=== PATIENT | female | born 1990 | race Caucasian/White ===

== ENCOUNTER 2019-12-14 04:45 | Inpatient (IN) | payer OTHER, SELFPAY ==
[2019-12-14] VITALS (85 sets, daily range): BP systolic 100–138; BP diastolic 52–99; PULSE 70–127; RESP 16–18; TEMP 36.3–36.7; O2SAT 95–100; BMI 45.9
--- NOTE | 2019-12-14 04:45 | LDADM ---
This patient, Akin Boyd, was admitted to Labor/Delivery/Recovery 106 on 12/14/19 at 04:45. Plans for labor, pain management and were discussed with patient. Patient/family oriented to hospital policies and general routines including ID bracelet, bed and alarms, visiting hours, pain management, procedures, bathroom and other care routines, personal items, smoking policy, room service/diet and guest tray routines, security routines, and visiting hours. Patient/Family are encouraged to report perceived risks to care and to ask questions if they do not understand what they are told or what they should do. See OBIX for further documentation.
[2019-12-14 05:27] LABS: Basophils Absolute Auto 0.1 K/mm3 (0.0-0.1); Basophils Percent Auto 0.5 % (0.2-1.2); Eosinophils Absolute Auto 0.1 K/mm3 (0-0.3); Eosinophils Percent Auto 1.4 % (0-4.4); Hematocrit 41.7 % (37.0-47.0); Hemoglobin 13.9 g/dL (12.0-15.0); Immature Granulocyte Absolute 0.03 K/mm3 (0.00-0.031); Immature Granulocyte Percent A 0.3 % (0-0.5); Lymphocytes Absolute Auto 2.35 K/mm3 (0.9-3.2); Lymphocytes Percent Auto 25.7 % (18.3-44.2); Mean Corpuscular HGB Conc 33.3 g/dl (32-36); Mean Corpuscular Hemoglobin 29.1 pg (26-34); Mean Corpuscular Volume 87.2 fl (80-100); Mean Platelet Volume 11.3 fl (7.4-10.4); Monocytes Absolute Auto 0.7 K/mm3 (0.1-0.6); Monocytes Percent Auto 7.4 % (2.6-8.5); Neutrophils Absolute Auto 5.9 K/mm3 (1.3-6.7); Neutrophils Percent Auto 64.7 % (45.5-73.1); Platelet Count Result 177 k/mm3 (150-375); Red Blood Count 4.78 M/mm3 (4.2-5.4); Red Cell Distribution Width 14.5 % (11.5-14.5); White Blood Count 9.1 K/mm3 (4.5-10.0)
[2019-12-14] MEDS: LACTATED RINGERS 1,000 ML 125 ML IV CONT ×3 (05:40→12:37)
[2019-12-14] MEDS: OXYTOCIN 30 UNITS/NS 500 ML 30 UNITS/500 ML BAG IV CONT ×2 (05:40→14:22)
[2019-12-14 05:41] LABS: Uric Acid 3.3 mg/dL (2.5-7.5)
[2019-12-14 05:43] LABS: Alanine Aminotransferase 14 U/L (4-35); Albumin Level 3.4 g/dL (3.5-5.1); Alkaline Phosphatase 144 U/L (38-126); Anion Gap 7 mmol/L (8-16); Aspartate Amino Transferase 18 U/L (14-36); Bilirubin,Total 0.7 mg/dL (0.2-1.3); Blood Urea Nitrogen 9 mg/dL (7-17); Calcium 8.8 mg/dL (8.4-10.2); Carbon Dioxide 19 mmol/L (22-30); Chloride 107 mmol/L (98-107); Estimated CRCL calculation 207 ml/min; Estimated Glomerular Filt Rate > 60; Glucose 99 mg/dL (65-105); Potassium 3.5 mmol/L (3.4-5.0); Sodium 133 mmol/L (137-145)
--- NOTE | 2019-12-14 07:22 | WPDOBADMIT ---
Obstetrics - Admit Note Admission Note: record reviewed. No pertinent additions to the history and/or any subsequent changes in the physical findings that are not consistent with the expected course of the were found. CHTN at 40 weeks gestation, MIL, gbs negative Additions to the history and/or subsequent changes in the physical findings follow. None.
--- NOTE | 2019-12-14 09:30 | WPDANESEPP ---
Anes - Eval Pre Procedure Procedure: labor epidural Date/Time: 12/14/19 09:30 Surgeon: lyla Pre Op Diagnosis: Induction Patient Data Age: 29 Gender: F Height: 1.73 m Weight: 137 kg Last Vital Signs Temp 36.5 C 12/14/19 05:08 Pulse 127 H 12/14/19 09:17 BP 109/59 L 12/14/19 09:17 Allergies Allergy/AdvReac Type Severity Reaction Status Date / Time No Known Allergies Allergy Verified 12/14/19 04:54 Home Medications Medication Instructions Recorded Confirmed Type PNV cmb#95-ferrous fumarate-FA 1 tablet PO DAILY 11/14/19 12/14/19 History [] Laboratory Tests 12/14/19 12/14/19 12/14/19 05:16 05:16 05:16 WBC 9.1 K/mm3 K/mm3 (4.5-10.0) RBC 4.78 M/mm3 M/mm3 (4.2-5.4) Hgb 13.9 g/dL g/dL (12.0-15.0) Hct 41.7 % % (37.0-47.0) MCV 87.2 fl fl (80-100) MCH 29.1 pg pg (26-34) MCHC 33.3 g/dl g/dl (32-36) RDW 14.5 % % (11.5-14.5) Plt Count 177 k/mm3 k/mm3 (150-375) MPV 11.3 fl H fl (7.4-10.4) Immature Gran % (Auto) 0.3 % % (0-0.5) Neut % (Auto) 64.7 % % (45.5-73.1) Lymph % (Auto) 25.7 % % (18.3-44.2) [place] % (Auto) 7.4 % % (2.6-8.5) Eos % (Auto) 1.4 % % (0-4.4) Baso % (Auto) 0.5 % % (0.2-1.2) Lymph # (Auto) 2.35 K/mm3 K/mm3 (0.9-3.2) [place] # (Auto) 0.7 K/mm3 H K/mm3 (0.1-0.6) Eos # (Auto) 0.1 K/mm3 K/mm3 (0-0.3) Baso # (Auto) 0.1 K/mm3 K/mm3 (0.0-0.1) Abs Immat Gran (auto) 0.03 K/mm3 K/mm3 (0.00-0.031) Absolute Neuts (auto) 5.9 K/mm3 K/mm3 (1.3-6.7) Absolute Nucleated RBC 0.0 K/mm3 K/mm3 (0.0-0.012) Nucleated RBC % 0.0 % % (0.0-0.2) Sodium Potassium Chloride Carbon Dioxide Anion Gap BUN Creatinine Estim Creat Clear Calc Estimated GFR Glucose Uric Acid 3.3 mg/dL mg/dL (2.5-7.5) Calcium Total Bilirubin AST ALT Alkaline Phosphatase Total Protein Albumin RPR Pending Blood Type Antibody Screen 12/14/19 12/14/19 05:16 05:16 WBC RBC Hgb Hct MCV MCH MCHC RDW Plt Count MPV Immature Gran % (Auto) Neut % (Auto) Lymph % (Auto) [place] % (Auto) Eos % (Auto) Baso % (Auto) Lymph # (Auto) [place] # (Auto) Eos # (Auto) Baso # (Auto) Abs Immat Gran (auto) Absolute Neuts (auto) Absolute Nucleated RBC Nucleated RBC % Sodium 133 mmol/L L mmol/L (137-145) Potassium 3.5 mmol/L mmol/L (3.4-5.0) Chloride 107 mmol/L mmol/L (98-107) Carbon Dioxide 19 mmol/L L mmol/L (22-30) Anion Gap 7 mmol/L L mmol/L (8-16) BUN 9 mg/dL mg/dL (7-17) Creatinine 0.50 mg/dL L mg/dL (0.7-1.0) Estim Creat Clear Calc 207 ml/min ml/min Estimated GFR > 60 (59 - ) Glucose 99 mg/dL mg/dL (65-105) Uric Acid Calcium 8.8 mg/dL mg/dL (8.4-10.2) Total Bilirubin 0.7 mg/dL mg/dL (0.2-1.3) AST 18 U/L U/L (14-36) ALT 14 U/L U/L (4-35) Alkaline Phosphatase 144 U/L H U/L (38-126) Total Protein 7.0 g/dL g/dL (6.3-8.2) Albumin 3.4 g/dL L g/dL (3.5-5.1) RPR Blood Type O Positive Antibody Screen Negative Patient hx anesthesia problems: none Family hx anesthesia problems: none [facility] Family History Family History (Updated 11/14/19 @ 12:37 by Madonna Ortiz RN) Mother Hypertension Social History Social Hist
[2019-12-14 11:41] LABS: Rapid Plasma Reagin Non-Reactive (NonReactive)
[2019-12-14] MEDS: SODIUM CHLORIDE 0.9% IV 300 ML 600 ML I-UTERINE (13:20)
--- NOTE | 2019-12-14 13:59 | PM.OBPRVD ---
OB - Delivery Note Procedure Delivery date: 12/14/19 Procedure: vaginal delivery events: Induced HTN Intrapartal events: None Induction method: AROM and per pitocin protocol Delivery monitor: external FHT Route of delivery: Laceration description: Perineal - 2nd Degree Delivery repair: vicryl Specimen: Yes Estimated blood loss (mL): 315 Anesthesia type: Epidural Disposition: other () Baby Date of : 12/14/19 Time of : 01:39 Weeks of gestation at delivery: 40 Infant gender: Male Weight (pounds): 8 Weight (ounces): 6 presentation: vertex Placenta delivery description: Spontaneous cord vessel description: 3 Vessels, Nuchal Cord, Loose, Reduced and Clamped/Cut score one minute: 7 score five minutes: 9
[2019-12-14] MEDS: miSOPROStol 200 MCG TABLET 800 MCG RECTAL (15:10)
[2019-12-14] MEDS: BENZOCAINE 20% AER SPR (*SP) 56 GM CAN 1 SPRAY TOPICAL (16:07)
[2019-12-14] MEDS: WITCH HAZEL 40 PADS 1 PAD TOPICAL (16:07)
[2019-12-14] MEDS: IBUPROFEN 600 MG TABLET PO (18:09)
--- NOTE | 2019-12-14 18:40 | PC.NURSE ---
Patient transferred to post room #290 via wheelchair. Support person present. Oriented to unit, room, information board, rooming in, admission packet and security measures. Patient verbalizes understanding.
[2019-12-14] MEDS: ACETAMINOPHEN 325 MG TABLET 650 MG PO (21:06)
[2019-12-15] MEDS: IBUPROFEN 600 MG TABLET PO (02:04)
[2019-12-15 05:13] LABS: Hemoglobin 11.5 g/dL (12.0-15.0)
[2019-12-15] MEDS: MULTIVIT/MIN/PREN/FOL AC/IRON TABLET 1 TAB PO (07:28)
[2019-12-15] MEDS: ACETAMINOPHEN 325 MG TABLET 650 MG PO (07:28)
[2019-12-15 10:52] VITALS: BP 123/83; PULSE 77; RESP 16; TEMP 36.2
--- NOTE | 2019-12-15 11:08 | PM.OBPNVD ---
OB - PN: Subj Subjective Date/time seen: 12/15/19 11:08 OB - PN: Obj Data Labs CBC & Chem 7: 12/15/19 03:57 12/14/19 05:16 Labs: Laboratory Results - last 24 hr 12/14/19 12/15/19 05:16 03:57 Hgb 11.5 L Hct 35.0 L RPR Non-reactive OB - PN A/P Plan day: 1 Plan: routine care and discharge home Time Spent With Patient Time: Total time spent is greater than 50% in coordination of care (as documented) at patient's floor/unit and/or counseling patient: Time with patient: less than 15 minutes Review of Systems Review of Systems: All systems reviewed & are unremarkable except as noted in HPI and below Exam Narrative: Exam Narrative: Fundus firm and vaginal flow controlled. Const: General: comfortable Chest: Breast/axilla inspection: normal inspection of the breasts Resp: Effort & Inspection: normal respiratory effort Cardio: Rate: regular rate Psych: Appearance: grossly normal Affect: normal affect Attitude: cooperative Judgement: Good judgement present (Psych)
[2019-12-17 10:27] VITALS: BP 132/84; PULSE 81; RESP 18; TEMP 36.8; O2SAT 99
--- NOTE | 2019-12-25 07:50 | PM.OBDSVD ---
DS: Admitting Diagnosis Admitting Diagnosis Admitting Diagnosis: Induction OB - DS: Summary OB Procedures : None OB Procedures Intrapartum: Spontaneous Vag Delivery OB Procedures: : None Time Spent with Patient Time attestation: Total time spent providing and/or coordinating discharge services: DS: Data Data Completed and Pending Completed studies during hospitalization: Pending at discharge 12/14/19 14:32 Surgical [PTH] Routine Discharge Plan Discharge Attending physician on discharge: Kathy Abrams Consulting providers: Sanam Alston ; Jyoti Poon Discharging Clinician: Jyoti Poon Patient Disposition: Home, Self-Care Activity: pelvic rest Diet: as tolerated Discharge Instructions: Education: Mom and Baby Guide Given to: Mother Follow-Up: Call your delivering provider's office for an appointment to be seen in: 4 Weeks Mom and baby should come to the [facility] for the follow-up appointment. Appointment Date/Time: December 15, 2019 at 10:00 am What to expect at your follow-up visit: Blood Pressure Check Physical Assessment Call [phone] if you are unable to keep your appointment time. BREAST CARE: * Wear a snug supportive bra. * For engorgement discomfort: Breast Feeding: * Apply warm moist washcloths * Express milk as needed to relieve engorgement * Wear loose clothing * For sore nipples: * Identify correct latch-on * Apply warm moist washcloths before and after nursing * Air dry nipples after nursing * May apply Lansinoh cream to nipples EPISIOTOMY/PERINEAL CARE: * Until bleeding stops, use your fiordaliza bottle after urinating * Change your pad frequently throughout the day * You may take sitz baths several times a day (fill your bathtub with warm water and soak for 20 minutes.) Do NOT bathe in the water * No tub baths until seen by your physician - You may shower ACTIVITY: * Rest as much as possible. * Do not exercise or lift anything heavier than your baby (such as laundry or other children.) * Avoid stairs or driving as much as possible. * Do not put anything into the vagina. No douching, tampons, or sexual activity until seen by physician. NOTIFY PHYSICIAN IF YOU HAVE ANY QUESTIONS OR IF ANY OF THE FOLLOWING SYMPTOMS OCCUR: * If your perineum becomes red, swollen, or more painful than what you have experienced in the hospital. * If your vaginal bleeding becomes foul smelling. * If your vaginal bleeding becomes more heavy than a period or if your bleeding changes from pink to bright red. However, you may pass an occasional walnut-sized clot once or twice for the first week . * If you experience a sharp, shooting pain in your calves. * If you discover a hard, reddened area on your breast or if you experience flu-like symptoms. DIET: * Eat regular, well-balanced meals. * Drink plenty of fluids daily. If , drink to thirst. Stand Alone Forms: General Discharge Information Follow-up/Referrals: Kathy Abrams MD [Physician] - Discharge Medications: Continued PNV cmb#95-ferrous fumarate-FA [] 28 mg iron- 800 mcg Tablet 1 tablet PO DAILY RF: 0 Date of admission: 12/14/19 04:45 Primary Care Provider: PHYSICIAN,MICROELECTRONICS TECHNICIAN Admitting Provider: Kathy Abrams Discharge Date/Time: 12/15/19 14:58 Attending physician on admission: Kathy Abrams
--- NOTE | 2019-12-28 07:41 | PM.OBDSVD ---
DS: Admitting Diagnosis Admitting Diagnosis Admitting Diagnosis: Induction, stable OB - DS: Summary OB Procedures : None OB Procedures Intrapartum: Spontaneous Vag Delivery OB Procedures: : None Time Spent with Patient Time attestation: Total time spent providing and/or coordinating discharge services: DS: Data Data Completed and Pending Completed studies during hospitalization: Pending at discharge 12/14/19 14:32 Surgical [PTH] Routine Discharge Plan Discharge Attending physician on discharge: Kathy Abrams Consulting providers: Sanam Altson ; Jyoti Poon Discharging Clinician: Jyoti Poon Patient Disposition: Home, Self-Care Activity: pelvic rest Diet: as tolerated Discharge Instructions: Education: Mom and Baby Guide Given to: Mother Follow-Up: Call your delivering provider's office for an appointment to be seen in: 4 Weeks Mom and baby should come to the [facility] for the follow-up appointment. Appointment Date/Time: December 15, 2019 at 10:00 am What to expect at your follow-up visit: Blood Pressure Check Physical Assessment Call [phone] if you are unable to keep your appointment time. BREAST CARE: * Wear a snug supportive bra. * For engorgement discomfort: Breast Feeding: * Apply warm moist washcloths * Express milk as needed to relieve engorgement * Wear loose clothing * For sore nipples: * Identify correct latch-on * Apply warm moist washcloths before and after nursing * Air dry nipples after nursing * May apply Lansinoh cream to nipples EPISIOTOMY/PERINEAL CARE: * Until bleeding stops, use your fiordaliza bottle after urinating * Change your pad frequently throughout the day * You may take sitz baths several times a day (fill your bathtub with warm water and soak for 20 minutes.) Do NOT bathe in the water * No tub baths until seen by your physician - You may shower ACTIVITY: * Rest as much as possible. * Do not exercise or lift anything heavier than your baby (such as laundry or other children.) * Avoid stairs or driving as much as possible. * Do not put anything into the vagina. No douching, tampons, or sexual activity until seen by physician. NOTIFY PHYSICIAN IF YOU HAVE ANY QUESTIONS OR IF ANY OF THE FOLLOWING SYMPTOMS OCCUR: * If your perineum becomes red, swollen, or more painful than what you have experienced in the hospital. * If your vaginal bleeding becomes foul smelling. * If your vaginal bleeding becomes more heavy than a period or if your bleeding changes from pink to bright red. However, you may pass an occasional walnut-sized clot once or twice for the first week . * If you experience a sharp, shooting pain in your calves. * If you discover a hard, reddened area on your breast or if you experience flu-like symptoms. DIET: * Eat regular, well-balanced meals. * Drink plenty of fluids daily. If , drink to thirst. Stand Alone Forms: General Discharge Information Follow-up/Referrals: Kathy Abrams MD [Physician] - Discharge Medications: Continued PNV cmb#95-ferrous fumarate-FA [] 28 mg iron- 800 mcg Tablet 1 tablet PO DAILY RF: 0 Date of admission: 12/14/19 04:45 Primary Care Provider: PHYSICIAN,SALESPERSON [place] [employer] Admitting Provider: Kathy Abrams Discharge Date/Time: 12/15/19 14:58 Attending physician on admission: Kathy Abrams
== END 2019-12-15 14:58 | disposition home or self-care (01) | DRG 560 ==
LOC: ANHLDR 04:55 → ANHOB2 20:12
PROVIDERS: Advanced Practice Midwife; Admitting Provider Obstetrics & Gynecology; Visit Provider Obstetrics & Gynecology
DX: O13.4 Gestational [pregnancy-induced] hypertension without significant proteinuria, complicating childbirth (principal); O69.81X0 Labor and delivery complicated by cord around neck, without compression, not applicable or unspecified; O70.1 Second degree perineal laceration during delivery; Z3A.40 40 weeks gestation of pregnancy; Z37.0 Single live birth
CPT/HCPCS: 36415; 80053; 84550; 85014; 85018; 85025; 86592; 86850; 86900; 86901; 88307; A9270; J2590; J2795; J7030; J7120

== ENCOUNTER 2021-06-18 11:52 | Outpatient (CLI) | payer OTHER, SELFPAY ==
--- NOTE | 2021-06-18 12:14 | ECG_ITS ---
Measurements Intervals [place] Rate: 83 P: 24 VT: 165 QRS: -19 QRSD: 87 T: 56 QT: 397 QTc: 467 Interpretive Statements SINUS RHYTHM MODERATE VOLTAGE CRITERIA FOR LVH, CONSIDER NORMAL VARIANT [MEETS CRITERIA IN ONE OF: R(aVL), S(V1), R(V5), R(V5/V6)+S(V1)] NONSPECIFIC T-WAVE ABNORMALITY NO PREVIOUS ECG AVAILABLE FOR COMPARISON Electronically Signed On 06-18-2021 18:45:27 CDT by Rosanna Velez M.D.
== END 2021-06-18 11:53 | disposition home or self-care (01) ==
PROVIDERS: Visit Provider Obstetrics & Gynecology
DX: E66.9 Obesity, unspecified (principal)
CPT/HCPCS: 93005

== ENCOUNTER 2021-08-25 09:25 | Outpatient (RCR) | payer SELFPAY ==
[2021-08-25 09:46] VITALS: BMI 41.8
== END 2021-09-25 11:52 | disposition home or self-care (01) ==
LOC: ANHDMC 09:25
PROVIDERS: PCP Physician Assistant; Visit Provider Physician Assistant
DX: Z68.41 Body mass index [BMI] 40.0-44.9, adult (principal); Z71.3 Dietary counseling and surveillance
CPT/HCPCS: 97802

== ENCOUNTER 2022-01-29 01:07 | Day surgery (SDC) | payer OTHER, SELFPAY ==
[2022-01-27 10:01] VITALS: BMI 41.6
--- NOTE | 2022-01-27 10:05 | PC.NURSE ---
Report to the Outpatient Waiting Room, entrance under the green pavilion located off [facility], at time 1130 on date 01/29/22. Planned Procedure Time: 1330. Time changes happen often and if your time is changed the preop area will call you the afternoon before. - You and your visitor will be asked to self-screen and do not enter if you have any COVID symptoms. - We encourage only one visitor and NO visitors under age 16 are allowed at this time. Your visitor will receive communication by the phone number that is given day of service. - The patient visitor is requested to social distance or may leave the building when not with patient due to restrictions. - A mask is required within the hospital. Patients may have clear liquids (water, carbonated beverages, clear teas, apple juice) until 3 hours prior to surgery with a maximum of 20 ounces. - No food from midnight until time of surgery Take the following medications with a SIP of water the morning of surgery: NONE Medications to discontinue per physician: VITAMINS Date to take last dose: NO MORE UNTIL AFTER SURGERY Please no make-up, nail zambian, hairspray, perfume, deodorant, or body powder the day of surgery. No jewelry (including any body piercings) or valuables the day of surgery, leave them at home. Please take a shower or bath the night before, or the morning of, surgery with an antibacterial soap. Wear comfortable, loose fitting clothing. - Jewelry must be removed prior to entering the operating room. Rings and piercings that are not removed may be cut off. - The hospital will not accept responsibility for valuables. - Please leave all valuables, including medications, at home the day of surgery. If you are going home after surgery, a licensed pizza driver must drive you home. - NO public transportation without another adult. - We recommend that an adult stay with you for 24 hours following discharge. - We also recommend that you do not drive, make important decision, drink alcoholic beverages, or take any drugs that were not prescribed by your health care provider for at least 24 hours after your discharge time. Follow any additional instructions given to you from your surgeon. If you or anyone in your household have experienced Covid symptoms in the past week, please notify your surgeon or the nurse liaison at the phone number below for possible testing. Telephone instructions given to PT - TOMI LINDER and asked if any additional questions and then verbalized understanding. Patient advised to call surgeon office or pre surgery nurse liaison [phone] if any additional questions.
--- NOTE | 2022-01-28 14:38 | WPDANESEPPF ---
Anes - Initial Pre Proc Eval Procedure: Operation Date: 01/29/22 13:30 Proposed Procedures p Suction Dilatation and Curettage - Grecia Reyes MD Date/Time: 01/28/22 14:38 Surgeon: Grecia Reyes MD Pre Op Diagnosis: blighted ovum Patient Data Age: 31 Gender: F Height: 1.72 m Weight: 123.4 kg Allergies Allergy/AdvReac Type Severity Reaction Status Date / Time No Known Allergies Allergy Verified 01/29/22 11:50 Home Medications Medication Instructions Recorded Confirmed Type vit no.95-ferrous 1 tablet PO DAILY 11/14/19 01/29/22 History fumarate 28 mg-folic acid 800 mcg tablet () cholecalciferol (vitamin D3) 125 125 mcg PO DAILY 01/27/22 01/29/22 History mcg (5,000 unit) tablet (Vitamin D3) Patient hx anesthesia problems: none Family hx anesthesia problems: none Results Review: All pre-operative results and documents have been reviewed as part of the pre-operative evaluation. [facility] Past Medical History Medical History (Updated 01/28/22 @ 14:39 by Eirs Cotter MD) Hyperlipidemia Morbid obesity with BMI of 40.0-44.9, adult Family History Family History (Updated 11/14/19 @ 12:37 by Madonna Ortiz RN) Mother Hypertension Social History Social History Smoking status: Never smoker Alcohol intake: never Substance use: never Substance use type: does not use Living arrangements: with family Gender identity (if verbalized by the patient): Female Spiritual care concerns: No Anes - Eval Final PreProcedure Day of Procedure 01/28/22 14:38 Patient weight: morbidly obese Heart: regular rate and rhythm Lungs: clear to auscultation and normal air movement Airway: Mallampati scale class II Neurological: alert and oriented Last oral intake: >/= 8 hours ASA classification: III Emergent: no Anesthetic plan: proceed Anesthesia type and monitoring: general GIVS and LMA Results Review: All pre-operative results and documents have been reviewed as part of the pre-operative evaluation. Informed Consent: The patient's anesthetic plan and its attendant risks and benefits were discussed with the patient/family/POA. Questions were solicited and answers provided to the satisfaction of the patient/family/POA.
[2022-01-29] MEDS: ACETAMINOPHEN 500 MG TABLET 1000 MG PO (12:20)
[2022-01-29] MEDS: LACTATED RINGERS 1,000 ML 30 ML IV CONT (12:26)
[2022-01-29] MEDS: DOXYCYCLINE 100 MG/NS 100 ML 100 MG/100 ML BAG IVPB (12:27)
[2022-01-29 12:31] VITALS: BP 146/74; PULSE 82; RESP 16; TEMP 36.8; O2SAT 100
--- NOTE | 2022-01-29 13:33 | PM.IMHP ---
H&P: HPI History of Present Illness Date/Time: 01/29/22 13:33 Chief Complaint: blighted ovum Narrative: Akin is a with blighted ovum based on US 8 days apart with no progression, no pole, at >9w GA. She has history of HTN and two term SVDs. Review of Systems Review of Systems: All systems reviewed & are unremarkable except as noted in HPI and below PMFSH Past Medical History Medical History (Updated 01/29/22 @ 13:34 by Grecia Reyes MD) Hyperlipidemia Morbid obesity with BMI of 40.0-44.9, adult Family History Family History (Updated 11/14/19 @ 12:37 by Madonna Ortiz RN) Mother Hypertension Social History Social History Smoking status: Never smoker Alcohol intake: never Substance use: never Substance use type: does not use Living arrangements: with family Gender identity (if verbalized by the patient): Female Spiritual care concerns: No Meds Home Medications and Allergies Home Medications Medication Instructions Recorded Confirmed Type vit no.95-ferrous 1 tablet PO DAILY 11/14/19 01/29/22 History fumarate 28 mg-folic acid 800 mcg tablet () cholecalciferol (vitamin D3) 125 125 mcg PO DAILY 01/27/22 01/29/22 History mcg (5,000 unit) tablet (Vitamin D3) Allergies Allergy/AdvReac Type Severity Reaction Status Date / Time No Known Allergies Allergy Verified 01/29/22 11:50 Vital Signs Vital Signs - 24 hr 01/29/22 12:31 Temperature 98.3 F Pulse Rate 82 Respiratory Rate 16 Blood Pressure 146/74 H Pulse Oximetry 100 Oxygen Delivery Room Air Exam Const: General: no acute distress Resp: Effort & Inspection: normal respiratory effort Auscultation: clear to auscultation bilaterally Cardio: Rate: regular rate Rhythm: regular rhythm GI: GI Palp: Yes Soft to palpation Extrem: General: normal to inspection Assessment and Plan Assessment and plan (1) Blighted ovum: Code(s): O02.0 - Blighted ovum and nonhydatidiform mole Status: Acute Plan O pos will proceed with suction D and C for blighted ovum. Discussed RBA< consented. questions answered doxy.
--- NOTE | 2022-01-29 13:35 | WPDHPUPDATE1 ---
History and Physical Update Update Date/Time: 01/29/22 13:35 History and Physical has been reviewed, including an updated exam of the patient. There are NO changes in the patient's condition. Risks, benefits, and alternatives have been discussed and questions answered. Patient agrees to proceed with procedure.
[2022-01-29] MEDS: BUPIVACAINE/EPINEPHRINE 0.25% 50 ML VIAL 10 ML INFILTRATE (13:53)
--- NOTE | 2022-01-29 14:14 | W.PM.PROC2 ---
Procedure Note - Detailed Date of Procedure 01/29/22 Pre-op Diagnosis blighted ovum Post-op Diagnosis Same Procedure Performed suction D and C Surgeon Grecia Reyes MD Anesthesia MAC Indications blighted ovum on two US Findings uterus sounded to 9cm. copious POC. Description of Procedure The patient was taken to the OR and placed in supine position in dorsal lithotomy. She received MAC anesthesia and doxycycline. She was prepped and draped in normal fashion. A speculum was placed and the cervix was grasped with a single tooth tenaculum. A paracervical block was placed with 10cc 0.25% marcaine with epinephrine. The cervix was sequentially dilated to 8 pfeiffer. The suction was tested and then the suction catheter was inserted into the uterine cavity. Several passes were made until no further products of conception were obtained. The tenaculum was removed and hemostasis was obtained with pressure and monsel's solution. The speculum was removed. The patient tolerated the procedure well and was taken to the recovery room in stable condition. Estimated Blood Loss 50 Drains No Packing No Pathology Yes Complications No immediate complications Condition Stable Disposition Same day
[2022-01-29 14:15] VITALS: BP 101/47; PULSE 83; RESP 12; O2SAT 100
[2022-01-29 14:30] VITALS: BP 108/53; PULSE 69; RESP 12; O2SAT 100
[2022-01-29 14:45] VITALS: BP 121/66; PULSE 74; RESP 12; O2SAT 99
[2022-01-29 15:15] VITALS: BP 121/69; PULSE 68; RESP 14
== END 2022-01-29 15:25 | disposition home or self-care (01) ==
PROVIDERS: PCP Physician Assistant; Visit Provider Obstetrics & Gynecology
PROC: (CPT 59820; principal; 2022-01-29 13:30)
DX: O02.0 Blighted ovum and nonhydatidiform mole (principal)
CPT/HCPCS: 59820; 36415; 85461; 86850; 86900; 86901; 88305; A9270; J1100; J1885; J2250; J2704; J3010; J7120

== ENCOUNTER 2023-02-17 18:06 | Observation (INO) | payer OTHER, SELFPAY ==
[2023-02-17 21:07] VITALS: BMI 48.3
--- NOTE | 2023-02-17 21:08 | OBADM ---
This patient, Akin Boyd, admitted to the OB room Labor/Delivery/Recovery 104 for observation. Patient/family oriented to hospital policies and general routines including ID bracelet, bed and alarms, visiting hours, pain management, procedures, bathroom and other care routines, personal items, smoking policy, room service/diet, and visiting hours. Patient/Family are encouraged to report perceived risks to care and to ask questions if they do not understand what they are told or what they should do.
--- NOTE | 2023-02-18 12:39 | PM.OBTRLD ---
OB - Triage/Final Diagnosis Visit Information Date of evaluation: 02/17/23 Reason for evaluation: threatened labor Comments/Additional reasons for admission: I have assessed the risk for this patient, Akin Boyd, and determined that she would benefit from observation care. Evaluation Vital signs: Vital Signs - 24 hr 02/17/23 21:07 Oxygen Delivery Room Air
== END 2023-02-17 21:15 | disposition home health service (06) ==
PROVIDERS: Admitting Provider Obstetrics & Gynecology; Visit Provider Obstetrics & Gynecology
DX: O47.1 False labor at or after 37 completed weeks of gestation (principal); Z3A.38 38 weeks gestation of pregnancy
CPT/HCPCS: G0378; G0379

== ENCOUNTER 2023-02-21 17:49 | Outpatient (CLI) | payer OTHER, SELFPAY ==
[2023-02-21 18:07] VITALS: BP 131/84; PULSE 87; TEMP 36.8
[2023-02-21 18:16] VITALS: BP 133/81; PULSE 85
[2023-02-21 18:31] VITALS: BP 133/76; PULSE 89
[2023-02-21 18:40] LABS: Appearance Urine Cloudy (Clear); Bacteria Urine Rare /hpf; Bilirubin Urine Negative (Negative); Blood Urine Negative (Negative); Color Urine Yellow (Yellow); Glucose Urine UA Negative (Negative); Ketones Urine Negative (Negative); Leukocyte Esterase Ur 1+ LEU/UL (NEGATIVE); Nitrate Urine Negative (Negative); Non Pathogenic Casts 0-2; Protein Urine Negative (Negative); RBC Urine 0-2 /hpf (0-2); Specific Grav Ur 1.012 (1.001-1.035); Squamous Epithelial Cell Urine Few /hpf (Few)
[2023-02-21 18:43] LABS: Basophils Percent Auto 0.2 % (0.2-1.2); Eosinophils Absolute Auto 0.1 K/mm3 (0-0.3); Eosinophils Percent Auto 1.2 % (0-4.4); Hematocrit 35.8 % (37.0-47.0); Hemoglobin 11.3 g/dL (12.0-15.0); Immature Granulocyte Absolute 0.03 K/mm3 (0.00-0.031); Immature Granulocyte Percent A 0.4 % (0-0.5); Lymphocytes Percent Auto 30.5 % (18.3-44.2); Mean Corpuscular HGB Conc 31.6 g/dl (32-36); Mean Corpuscular Hemoglobin 27.7 pg (26-34); Mean Corpuscular Volume 87.7 fl (80-100); Mean Platelet Volume 11.6 fl (7.4-10.4); Monocytes Absolute Auto 0.8 K/mm3 (0.1-0.6); Monocytes Percent Auto 9.3 % (2.6-8.5); Neutrophils Absolute Auto 4.8 K/mm3 (1.3-6.7); Neutrophils Percent Auto 58.4 % (45.5-73.1); Platelet Count Result 185 k/mm3 (150-375); Red Blood Count 4.08 M/mm3 (4.2-5.4); Red Cell Distribution Width 14.5 % (11.5-14.5); White Blood Count 8.2 K/mm3 (4.5-10.0)
[2023-02-21 18:46] VITALS: BP 125/84; PULSE 87
[2023-02-21 18:54] LABS: Alanine Aminotransferase 13 U/L (6-35); Albumin Level 3.3 g/dL (3.5-5.1); Alkaline Phosphatase 133 U/L (38-126); Anion Gap 7 mmol/L (8-16); Aspartate Amino Transferase 19 U/L (14-36); Bilirubin,Total 0.9 mg/dL (0.2-1.3); Blood Urea Nitrogen 5 mg/dL (7-17); Calcium 8.7 mg/dL (8.4-10.2); Carbon Dioxide 21 mmol/L (22-30); Chloride 108 mmol/L (98-107); Estimated Glomerular Filt Rate > 60; Glucose 88 mg/dL (65-110); Potassium 3.4 mmol/L (3.4-5.0); Sodium 136 mmol/L (137-145); Uric Acid 4.3 mg/dL (2.5-7.5)
[2023-02-21 19:09] LABS: Add Urine Microscopic? YES
[2023-02-21 19:21] LABS: Total Protein Urine Random 13 mg/dL
[2023-02-21 21:03] LABS: Creatinine Urine 82.5 mg/dL; Ur Ttl Prot Creatinine Ratio 0.16 mg/mg (0-0.20)
== END 2023-02-21 20:14 | disposition home or self-care (01) ==
LOC: ANHOBOP 17:55 → ANHLDR 17:58
PROVIDERS: Visit Provider Advanced Practice Midwife
DX: O13.9 Gestational [pregnancy-induced] hypertension without significant proteinuria, unspecified trimester (principal); Z3A.00 Weeks of gestation of pregnancy not specified
CPT/HCPCS: 36415; 59025; 80053; 81001; 82570; 84156; 84550; 85025; 87086; 87088; 99199

== ENCOUNTER 2023-02-28 06:28 | Inpatient (IN) | payer OTHER, SELFPAY ==
[2023-02-28] VITALS (110 sets, daily range): BP systolic 116–143; BP diastolic 67–94; PULSE 74–149; RESP 18; TEMP 36.5–37.6; O2SAT 93–100; BMI 47.9
--- NOTE | 2023-02-28 07:08 | LDADM ---
This patient, Akin Boyd, was admitted to Labor/Delivery/Recovery 108 on 02/28/23 at 06:28. Plans for labor, pain management and were discussed with patient. Patient/family oriented to hospital policies and general routines including ID bracelet, bed and alarms, visiting hours, pain management, procedures, bathroom and other care routines, personal items, smoking policy, room service/diet and guest tray routines, security routines, and visiting hours. Patient/Family are encouraged to report perceived risks to care and to ask questions if they do not understand what they are told or what they should do. See OBIX for further documentation.
[2023-02-28 07:20] LABS: Basophils Percent Auto 0.5 % (0.2-1.2); Eosinophils Absolute Auto 0.2 K/mm3 (0-0.3); Eosinophils Percent Auto 1.9 % (0-4.4); Hemoglobin 12.1 g/dL (12.0-15.0); Immature Granulocyte Absolute 0.04 K/mm3 (0.00-0.031); Immature Granulocyte Percent A 0.5 % (0-0.5); Lymphocytes Percent Auto 28.7 % (18.3-44.2); Mean Corpuscular HGB Conc 31.8 g/dl (32-36); Mean Platelet Volume 11.6 fl (7.4-10.4); Monocytes Absolute Auto 0.7 K/mm3 (0.1-0.6); Monocytes Percent Auto 8.5 % (2.6-8.5); Neutrophils Percent Auto 59.9 % (45.5-73.1); Platelet Count Result 187 k/mm3 (150-375); Red Blood Count 4.32 M/mm3 (4.2-5.4); Red Cell Distribution Width 14.3 % (11.5-14.5); White Blood Count 8.4 K/mm3 (4.5-10.0)
--- NOTE | 2023-02-28 07:49 | WPDOBADMIT ---
Obstetrics - Admit Note Admission Note: record reviewed. No pertinent additions to the history and/or any subsequent changes in the physical findings that are not consistent with the expected course of the were found. Additions to the history and/or subsequent changes in the physical findings follow. IOL, hx chronic HTN, obesity, SVE 250/-3 AROM moderate amount of clear, odorless fluid, anticipate vaginal delivery.
--- NOTE | 2023-02-28 08:06 | WPDANESEPP ---
Anes - Eval Pre Procedure Procedure: Labor epidural Date/Time: 02/28/23 08:06 Surgeon: Aliza Preop Diagnosis: Pain during labor Pre Op Diagnosis: Induction of Labor Patient Data Age: 32 Gender: F Height: 1.7 m Weight: 139 kg Last Vital Signs Pulse 108 H 02/28/23 08:01 BP 118/81 02/28/23 08:01 O2 Del Method Room Air 02/28/23 07:05 Allergies Allergy/AdvReac Type Severity Reaction Status Date / Time No Known Allergies Allergy Verified 02/09/23 15:21 Home Medications Medication Instructions Recorded Confirmed Type vit no.95-ferrous 1 tablet PO DAILY 11/14/19 02/09/23 History fumarate 28 mg-folic acid 800 mcg tablet () aspirin 81 mg tablet 81 mg PO DAILY 02/28/23 02/28/23 History Laboratory Tests 02/28/23 06:50 WBC 8.4 K/mm3 (4.5-10.0) RBC 4.32 M/mm3 (4.2-5.4) Hgb 12.1 g/dL (12.0-15.0) Hct 38.0 % (37.0-47.0) MCV 88.0 fl (80-100) MCH 28.0 pg (26-34) MCHC 31.8 L g/dl (32-36) RDW 14.3 % (11.5-14.5) Plt Count 187 k/mm3 (150-375) MPV 11.6 H fl (7.4-10.4) Immature Gran % (Auto) 0.5 % (0-0.5) Neut % (Auto) 59.9 % (45.5-73.1) Lymph % (Auto) 28.7 % (18.3-44.2) [place] % (Auto) 8.5 % (2.6-8.5) Eos % (Auto) 1.9 % (0-4.4) Baso % (Auto) 0.5 % (0.2-1.2) Lymph # (Auto) 2.40 K/mm3 (0.9-3.2) Highland # (Auto) 0.7 H K/mm3 (0.1-0.6) Eos # (Auto) 0.2 K/mm3 (0-0.3) Baso # (Auto) 0.0 K/mm3 (0.0-0.1) Abs Immat Gran (auto) 0.04 H K/mm3 (0.00-0.031) Absolute Neuts (auto) 5.0 K/mm3 (1.3-6.7) Absolute Nucleated RBC 0.0 K/mm3 (0.0-0.012) Nucleated RBC % 0.0 % (0.0-0.2) RPR Pending Patient hx anesthesia problems: none Family hx anesthesia problems: none Results Review: All pre-operative results and documents have been reviewed as part of the pre-operative evaluation. [facility]LY [facility] Past Medical History Medical History Hyperlipidemia Morbid obesity with BMI of 40.0-44.9, adult Family History Family History Mother Hypertension Social History Social History Smoking status: Never smoker Second hand tobacco smoke exposure: No Alcohol intake: never Substance use: never Substance use type: does not use Lack of Transportation: No Lack of Food: Never True Current Housing: I Have Housing Concerned About Future Housing: No Difficulty Paying Gas/Electric Bills: No Difficulty Paying for Meds: No Currently Unemployed: No Education: High School Diploma/GED Difficulty w/ Childcare or Family Care: No Living arrangements: with family Gender identity (if verbalized by the patient): Female Spiritual care concerns: No Exam Day of Procedure 02/28/23 08:06 Patient weight: morbidly obese Heart: regular rate and rhythm Lungs: clear to auscultation Airway: Mallampati scale class II Neurological: alert and oriented
[2023-02-28] MEDS: OXYTOCIN 30 UNITS/NS 500 ML 30 UNITS/500 ML BAG IV CONT (10:32)
[2023-02-28] MEDS: LACTATED RINGERS 1,000 ML 125 ML IV CONT ×2 (10:33→18:34)
[2023-02-28 14:54] LABS: Rapid Plasma Reagin Non-Reactive (NonReactive)
[2023-02-28] MEDS: LIDOCAINE HCL 1% LOCAL INJ 20 ML VIAL (19:52)
--- NOTE | 2023-02-28 20:04 | PM.OBPRVD ---
OB - Vaginal Delivery Note Procedure Delivery date: 02/28/23 Events: Other (chronic HTN) Induction method: AROM and Per Pitocin Protocol Delivery monitor: External FHT and Internal FHT Route of delivery: Episiotomy description: None Laceration Description: Perineal - 1st Degree Delivery repair: vicryl Specimen: Yes Quantitative Blood Loss (ml): 275 Anesthesia type: Local Disposition: Floor Baby Date of : 02/28/23 Time of : 19:46 Weeks of gestation at delivery: 39 Infant gender: Female Weight (pounds): 9 Weight (ounces): 12 presentation: vertex position: Left Occiput Anterior Placenta delivery description: Spontaneous Cord Vessel Description: 3 Vessels and Clamped/Cut score one minute: 8 score five minutes: 9 Narrative: mother and baby skin to skin in stable condition
[2023-02-28] MEDS: OXYTOCIN 30 UNITS/NS 500 ML 30 UNITS/500 ML BAG 125 UNITS IV CONT (20:26)
[2023-02-28] MEDS: IBUPROFEN 600 MG TABLET PO (21:56)
[2023-02-28] MEDS: ACETAMINOPHEN 325 MG TABLET 650 MG PO (21:58)
[2023-02-28] MEDS: LORATADINE 10 MG TABLET PO (21:59)
[2023-02-28] MEDS: BENZOCAINE 20% AER SPR (*SP) 56 GM CAN 1 SPRAY TOPICAL (21:59)
[2023-03-01 04:27] VITALS: BP 124/82; PULSE 96; RESP 18; TEMP 37.4; O2SAT 98
[2023-03-01 05:32] LABS: Hematocrit 35.8 % (37.0-47.0); Hemoglobin 11.2 g/dL (12.0-15.0)
[2023-03-01] MEDS: IBUPROFEN 600 MG TABLET PO ×3 (08:00→22:14)
[2023-03-01] MEDS: DOCUSATE SODIUM 100 MG CAPSULE PO ×2 (08:00→17:30)
[2023-03-01] MEDS: MULTIVIT/MIN/PREN/FOL AC/IRON TABLET 1 TAB PO (08:00)
[2023-03-01 09:06] VITALS: BP 133/89; PULSE 80; RESP 18; TEMP 36.7; O2SAT 99
--- NOTE | 2023-03-01 09:08 | PM.OBPNVD ---
OB - PN: Subj Subjective Date/time seen: 03/01/23 09:08 Interval history: Doing well, no issues overnight Regular diet Emptying bladder Passing flatus Pain well controlled OB - PN: Obj Data Labs 03/01/23 02:54 Labs: Laboratory Results - last 24 hr 02/28/23 03/01/23 06:50 02:54 Hgb 11.2 L Hct 35.8 L RPR Non-reactive Antibody Screen Negative OB - PN A/P Plan day: 1 Plan: routine care Time Spent With Patient Time: Total time spent is greater than 50% in coordination of care (as documented) at patient's floor/unit and/or counseling patient: Review of Systems Review of Systems: All systems reviewed & are unremarkable except as noted in HPI and below Exam Const: General: comfortable, no acute distress, alert and awake Orientation/consciousness: patient oriented x3 Resp: Effort & Inspection: normal respiratory effort GI: GI Palp: Yes Soft to palpation
[2023-03-01] MEDS: ACETAMINOPHEN 325 MG TABLET 650 MG PO (10:30)
[2023-03-01 12:25] VITALS: BP 107/72; PULSE 90; RESP 16; TEMP 36.3; O2SAT 99
--- NOTE | 2023-03-01 13:27 | PC.NURSE ---
[phone] Introductions were made, then consulted with patient to assess needs related to . Discussed with mother her?plans to feed?her infant, the?experience so far, encouraged switching breast, gentle massage/compression and getting deep latches for more swallowing. Resources provided for inpatient and outpatient services with the feeding sheet, mom/baby guide and name written on the communication board. Mother voiced understanding of information and will call if there is a request for assistance.
[2023-03-01 20:00] VITALS: BP 141/81; PULSE 86; RESP 20; TEMP 36.8
[2023-03-02] MEDS: IBUPROFEN 600 MG TABLET PO (05:19)
[2023-03-02] MEDS: ACETAMINOPHEN 325 MG TABLET 650 MG PO (05:20)
--- NOTE | 2023-03-02 06:41 | PM.OBPNVD ---
OB - PN: Subj Subjective Date/time seen: 03/02/23 06:41 Interval history: Doing well, no issues overnight Regular diet Emptying bladder Passing flatus Pain well controlled OB - PN: Obj Data Labs 03/01/23 02:54 OB - PN A/P Plan day: 2 Plan: routine care and discharge home Time Spent With Patient Time: Total time spent is greater than 50% in coordination of care (as documented) at patient's floor/unit and/or counseling patient: Review of Systems Review of Systems: All systems reviewed & are unremarkable except as noted in HPI and below Exam Const: General: cooperative and healthy appearing Resp: Effort & Inspection: normal respiratory effort GI: Inspection: normal to inspection Skin: General skin exam: normal color Neuro: General: patient oriented x3
--- NOTE | 2023-03-02 06:43 | P.DS_ITS ---
DS: Admitting Diagnosis Discharge Date 03/02/23 Admitting Diagnosis IOL, HTN DS: Discharge Diagnosis Discharge Diagnosis (1) Vaginal delivery: Code(s): O80 - Encounter for full-term uncomplicated delivery Status: Acute OB - DS: Summary OB Procedures : None OB Procedures Intrapartum: Spontaneous Vag Delivery OB Procedures: : None Peripartum Data Laceration Description: Perineal - 1st Degree Episiotomy description: None Time Spent with Patient Time attestation: Total time spent providing and/or coordinating discharge services: DS: Data Data Completed and Pending Pending studies at discharge: Pending at discharge 02/28/23 21:48 Surgical [PTH] Routine Discharge Plan Discharge Attending physician on discharge: Kathy Abrams Discharging Clinician: Sanam Alston Patient Disposition: Home, Self-Care Activity: pelvic rest Diet: regular Patient Instructions: Antibiotic Form Stand Alone Forms: General Discharge Information Follow-up/Referrals: Sanam Alston, CNM [Certified Nurse Hearing Screener] - 4 Weeks Discharge Medications: New ibuprofen 600 mg Tablet 600 mg PO Q6H PRN (Reason: Cramping) Qty: 30 0RF Continued PNV cmb#95-ferrous fumarate-FA [] 28 mg iron- 800 mcg Tablet 1 tablet PO DAILY Discontinued aspirin 81 mg Tablet 81 mg PO DAILY Date of admission: 02/28/23 06:28 Primary Care Provider: PHYSICIAN,CUTLET MAKER PORK Admitting Provider: Kathy Abrams Attending physician on admission: Kathy Abrams Condition: Stable
[2023-03-02] MEDS: DOCUSATE SODIUM 100 MG CAPSULE PO (07:05)
[2023-03-02] MEDS: MULTIVIT/MIN/PREN/FOL AC/IRON TABLET 1 TAB PO (07:05)
[2023-03-02 08:49] VITALS: BP 128/89; PULSE 81; RESP 16; TEMP 36.4; O2SAT 100
--- NOTE | 2023-03-02 11:47 | PC.NURSE ---
[phone] Mother led the conversation with her experience so far, plan to feed her , and her ability to independently latch optimally without discomfort. Reminded mother to use good handwashing technique to prevent infection. Mother is feeding appropriately for growth of infant and understands stimulating to eat if needed. has had appropriate feedings in the last 24 hours meets the outcomes for weight, output, blood sugar and jaundice at this time. Mother states she is confident to continue effectively her at home, when to call for assistance, denies any additional assistance or education at this time. Reinforced understanding of milk production, transition of milk, signs of adequate intake, transition of stool, prevention/relief of engorgement, plugged ducts, mastitis, responsive watching for feeding cues, the different methods of stimulating to breastfeed 1-3 hours after the start of the last feeding, community resources, and when to call a provider using the resource of the mom and baby guide. Mother voiced understanding of the education shared.
[2023-03-03 09:24] VITALS: BP 133/88; PULSE 79; RESP 18; TEMP 36.5; O2SAT 100
== END 2023-03-02 13:30 | disposition home or self-care (01) | DRG 807 ==
LOC: ANHLDR 06:33 → ANHOB2 22:34
PROVIDERS: Admitting Provider Obstetrics & Gynecology; Referring Provider Advanced Practice Midwife; Visit Provider Obstetrics & Gynecology
DX: O10.92 Unspecified pre-existing hypertension complicating childbirth (principal); Z37.0 Single live birth; Z3A.39 39 weeks gestation of pregnancy; O69.81X0 Labor and delivery complicated by cord around neck, without compression, not applicable or unspecified; O70.0 First degree perineal laceration during delivery; O99.214 Obesity complicating childbirth; E66.01 Morbid (severe) obesity due to excess calories
CPT/HCPCS: 36415; 85014; 85018; 85025; 86592; 86850; 86900; 86901; 88307; A9270; J2590; J7120

== ENCOUNTER 2024-01-07 08:37 | Emergency (ER) | payer OTHER, SELFPAY ==
--- NOTE | ~2024-01-07 | XR_ITS ---
EXAMINATION: XR ankle LT min 3V DATE: 01/07/2024 10:05 INDICATION: Lateral left ankle pain post trauma TECHNIQUE: Anteroposterior, oblique, mortise, and lateral views of the left ankle were obtained. COMPARISON: None. FINDINGS: Alignment is normal. No fracture. Joint spaces are normal. Soft tissue swelling overlying the lateral malleolus. IMPRESSION: 1. No osseous abnormality. Reviewed, dictated and finalized at location A. IMPRESSION: 1. No osseous abnormality.
[2024-01-07 08:53] VITALS: BP 140/86; PULSE 87; RESP 16; TEMP 36.8; O2SAT 99
--- NOTE | 2024-01-07 09:46 | ED.WOUNDLAC ---
HPI - Wound/Laceration General Chief Complaint: Wound/Laceration Stated Complaint: cut on left ankle,swollen Time Seen by Provider: 01/07/24 09:46 Source: patient, RN notes reviewed and old records reviewed Mode of arrival: ambulatory Limitations: no limitations History of Present Illness HPI narrative: Patient presents with complaints of redness and swelling to the left lateral ankle. She reports that she fell on 1 step approximately 1 week ago, some screws scratched the ankle, she cleaned the site with peroxide at the time of injury, but is having increasing redness. She reports that her tetanus shot is up-to-date. She is also concerned about some mild swelling to the left lateral ankle that began after the fall. She denies other injury and trauma. She denies any fever, chills, sweats. She voices no other concerns or complaints today. Related Data Allergies Allergy/AdvReac Type Severity Reaction Status Date / Time No Known Allergies Allergy Verified 01/07/24 08:42 Review of Systems Review of Systems: All systems reviewed & are unremarkable except as noted in HPI and below Constitutional: Constitutional: Reports no additional constitutional complaints ENT: Reports system reviewed and no additional complaints, except as documented Cardiovascular: Cardiovascular: Reports no additional cardiovascular complaints Respiratory: Respiratory: Reports no additional respiratory complaints Gastrointestinal: Gastrointestinal: Reports no additional gastrointestinal complaints Musculoskeletal: Musculoskeletal: Reports as per HPI and Reports joint swelling ( Left lateral ankle) Integumentary/Breasts: Skin/Breast: Reports erythema, Reports skin pain and Reports wounds PMFSH Past Medical History Medical History Hyperlipidemia Morbid obesity with BMI of 40.0-44.9, adult Family History Family History Mother Hypertension Social History Social History Smoking status: Never smoker Second hand tobacco smoke exposure: No Alcohol intake: never Substance use: never Substance use type: does not use Lack of Transportation: No Lack of Food: Never True Current Housing: I Have Housing Concerned About Future Housing: No Difficulty Paying Gas/Electric Bills: No Difficulty Paying for Meds: No Currently Unemployed: No Education: High School Diploma/GED Difficulty w/ Childcare or Family Care: No Living arrangements: with family Gender identity (if verbalized by the patient): Female Spiritual care concerns: No Exam Const: General: cooperative, no acute distress, alert and awake Orientation/consciousness: oriented to person, oriented to place and oriented to time HENMT: Head: normal to inspection Resp: Effort & Inspection: normal respiratory effort and able to speak in complete sentences Auscultation: clear to auscultation bilaterally, no crackles, no rales, no rhonchi and no wheezes Cardio: Palpation: normal PMI Rate: regular rate Rhythm: regular rhythm Heart sounds: S1 normal heart sound present and S2 normal heart sound present Skin: Wounds: wounds noted ( left lower leg near ankle) Other: there are superficial scratches to the left lower leg near ankle, surrounding skin is erythematous and warm to the touch. There is no purulent drainage noted Neuro: General: oriented to person, oriented to place and oriented to time Cranial nerves: Yes CN's II-XII intact bilaterally Extrem: Left lower extremity: full ROM, normal capillary refill and ankle Details: tenderness Location: of the lateral malleolus, swelling Details: laterally (trace) and normal ROM Psych: Appearance: grossly normal Thought process: Normal thought process present Insight: Good insight present (Psych) Judgement: Good judgement present (Psych) Co
== END 2024-01-07 10:21 | disposition home or self-care (01) ==
PROVIDERS: Emergency Provider Nurse Practitioner Family; PCP Physician Assistant
DX: L03.116 Cellulitis of left lower limb (principal); S80.812A Abrasion, left lower leg, initial encounter; W10.9XXA Fall (on) (from) unspecified stairs and steps, initial encounter; E78.5 Hyperlipidemia, unspecified; E66.01 Morbid (severe) obesity due to excess calories; Z68.42 Body mass index [BMI] 45.0-49.9, adult
CPT/HCPCS: 73610; 99213; G0463

== ENCOUNTER 2025-01-15 01:04 | Day surgery (SDC) | payer OTHER, SELFPAY ==
[2025-01-11 08:32] VITALS: BMI 44.7
--- NOTE | 2025-01-11 08:34 | PC.NURSE ---
[facility] has started construction of its new state of the art ER which will open Spring 2026. With this, we anticipate parking may be a challenge for some our surgical patients and families. Parking spaces are limited but are available for all Surgical, obstetrics, and ER patients sharing this lot. If you arrive and find you are having a hard time finding a parking space, please note that we understand the challenges, please drive around the hospital and park near Hospital Entrance 1. When you enter this entrance, you can ask a volunteer to direct or take you back to the surgical waiting area to check in. We appreciate everyone?s understanding of these expected challenges while we build for your future. Report to the Outpatient Waiting Room, entrance under the green pavilion located off [address], at time _0600_ on date _[phone]_. Planned Procedure Time: _0730_.? Time changes happen often and if your time is changed the preop area will call you the afternoon before. - You and your visitor will be asked to self-screen and do not enter if you have any COVID symptoms. Please call surgeon if you need to reschedule. - A mask is optional within the hospital at this time. Patients may have clear liquids (water, carbonated beverages, clear teas, apple juice) until 3 hours prior to surgery with a maximum of 20 ounces. - No food from midnight until time of surgery and no smoking, or chewing tobacco (or any form of nicotine). No chewing gum, candy or mints. Take only the following medications with a SIP of water on the morning of surgery: _None__ DO NOT STOP ANY OF YOUR OTHER PRESCRIPTION MEDICATIONS PRIOR TO SURGERY EXCEPT THE FOLLOWING Hold all vitamins and supplements for 3 days per anesthesiologist. Medications to discontinue per physician Date to take last dose Please no make-up, nail namibian, hairspray, perfume, deodorant, or body powder the day of surgery.? No jewelry (including any body piercings) or valuables the day of surgery, leave them at home.? Please take a shower or bath the night before, or the morning of, surgery with an antibacterial soap.? Wear comfortable, loose fitting clothing.? - Jewelry must be removed prior to entering the operating room.? Rings and piercings that are not removed may be cut off. - The hospital will not accept responsibility for valuables.? - Please leave all valuables, including medications, at home the day of surgery. If you are going home after surgery, a licensed tilt tray driver must drive you home.? - NO public transportation without another adult if you receive anesthesia. - We recommend that an adult stay with you for 24 hours following discharge. - We also recommend that you do not drive, make important decision, drink alcoholic beverages, or take any drugs that were not prescribed by your health care provider for at least 24 hours after your discharge time. Follow any additional instructions given to you from your surgeon. Telephone instructions given to __Akin__and asked if any additional questions and then verbalized understanding. Patient advised to call surgeon office or pre surgery nurse liaison [phone] if any additional questions.
--- OUTSIDE RECORDS SUMMARY | 2025-01-15 01:07 | XMS_ITS | Clinical Summary ---
Author Organization [facility] Address [address] [place] [address] Care Team Providers Care Farm Rancher Name Role Phone Julianne Montelongo APRN-SALES TRADER Primary Care Provider Source Comments [facility],non-owned Affiliates and Associated Physician Practices is amultiple site organization consisting of ambulatory clinics and hospital sitesin [place], [place], [place] and [place]. This disclosure is being madepursuant to the Care Everywhere program and may not contain all information available regarding this patient. Last updated 17.[facility] Allergies No known active allergies Medications * Be aware that medications may not be up to date on this document. Alwaysverify current medications with the patient. No known medications Social History Tobacco Use Types Packs/Day Years Used Date Smoking Tobacco: Never Alcohol Use Standard Drinks/Week Comments No 0 (1 standard drink = 0.6 oz pur e alcohol) Comments No Sex and Gender Information Value Date Recorded Sex Assigned at Female 07/27/2021 10:30 AM CDT Legal Sex Female 2:30 PM MRI TECHNOLOGIST Gender Identity Female 07/27/2021 10:30 AM CDT Sexual Orientation Straight 07/27/2021 10 :30 AM CDT Last Filed Vital Signs Vital Sign Reading Time Taken Comments Blood Pressure 130/70 08/04/2015 8:57 AM CDT Pulse 91 08/04/2015 8:57 AM CDT Temperature 36.5 C (97.7 F) 08/04/2015 8:57 AM CDT Respiratory Rate - - Oxygen Saturation 98% 08/04/2015 8:57 AM CDT Inhaled Oxygen Concentration - - Weight 125.4 kg (276 lb 6.4 oz) 08/04/2015 8:57 AM CDT Height 174.6 cm (5' 8.75) 02/20/2015 2:40 PM CS T Body Mass Index 41.11 02/20/2015 2:40 PM MRI TECHNOLOGIST Plan of Treatment Health Maintenance Due Date Last Done Comments HIV SCREENING 10/31/2007 HEPATITIS C SCREENING 10/26/2010 DTAP/TDAP/TD VACCINES (1 - Tdap) 10/31/2011 HEPATITIS B VACCINE (1 of 3 - 19+ 3-dose series) 10/31/2011 PAP SMEAR 2013 HPV VACCINE (1 - 3-dose SCDM series) 10/31/2019 DEPRESSION SCREENING 04/04/2024 COVID-19 VACCINE (1 - 2023-2 5 season) 2024 INFLUENZA VACCINE (#1) 2024 ZOSTER VACCINE (1 of 2) 2042 HIB VACCINE Aged Out No longer eligi ble based on patient's age to complete this topic MENINGOCOCCAL (Group B) VACC INE SHARED DECISION-MAKING Aged Out No longer eligibl e based on patient's age to complete this topic MENINGOCOCCAL GROUPS A/C/Y/W VACCINE Aged Out No longer eligible b ased on patient's age to complete this topic PNEUMOCOCCAL VACCINE Aged Out No long er eligible based on patient's age to complete this topic Insurance MEDICAID - [place] AETNA AETNA SELF PAY NO INSURANCE Member Subscriber Plan / Payer (Ef fective for All Dates) Name:Akin Boyd Member ID:Not on file Relation to Subscriber:Not on file Name:AKIN BOYD Subscriber ID:Not on file Address: [address] [place] [id number] Payer ID:Not on file Group ID:Not on file Type:Self Pay Address: [place], [place] Care Teams Farm Rancher Relationship Specialty Start Date End Date Julianne Montelongo, PARK MAINTENANCE TECHNICIAN-SALES TRADER [address] [place] [id number] PCP - General Nurse Practitioner 10/17/17
--- OUTSIDE RECORDS SUMMARY | 2025-01-15 01:07 | XMS_ITS | Clinical Summary ---
Author Organization [facility] Address [address] [place] [id number] Care Team Providers Care Operations Administrative Assistant Name Role Phone None, Provider MD Primary Care Provider Unavaila ble Allergies No known active allergies Social History Tobacco Use Types Packs/Day Years Used Date Smoking Tobacco: Never Smokeless Tobacco: Never Tobacco Cessation:Counseling Given: Not Answered Alcohol Use Standard Drinks/Week Comments Not Currently 0 (1 standard drink = 0.6 oz pur e alcohol) Comments No Sex and Gender Information Value Date Recorded Sex Assigned at Not on file Legal Sex Female 3:49 PM CDT Gender Identity Not on file Sexual Orientation Not on file Last Filed Vital Signs Vital Sign Reading Time Taken Comments Blood Pressure 135/97 06/23/2022 10:42 PM CDT Pulse 90 06/23/2022 10:42 PM CDT Temperature 36.3 C (97.4 F) 06/23/2022 9:27 PM CDT Respiratory Rate 20 06/23/2022 9:27 PM CDT Oxygen Saturation 98% 06/23/2022 10: 42 PM CDT Inhaled Oxygen Concentration - - Weight 129.2 kg (284 lb 13.4 oz) 06/23/2022 9:27 PM CDT Height 172.7 cm (5' 8) 06/23/2022 9:27 PM CDT Body Mass Index 43.31 06/23/2022 9:27 PM CDT Plan of Treatment Health Maintenance Due Date Last Done Comments Annual Physical 10/31/1995 Hepatitis C 2010 Hepatitis B Vaccines (1 of 3 - 19+ 3-dose series) 10/31/2011 HPV Vaccines (1 - 3-dose SCD M series) 10/31/2019 Cervical Cancer Screening Pa p with HPV Testing (Age 30 to 64) Every 5 Years 2022 Cervical Cancer Screening Pa p Smear (Age 30 to 64) Every 3 Years 06/26/2024 06/26/2021 Cervical Cancer Screening wi th HPV 06/26/2024 COVID-19 Vaccine (3 - 2024-2 6 season) 2024 07/29/2020, 07/05/2020 Influenza Adult (#1) 2025 01/25/2018 DTaP, Tdap and Td Vaccines ( 3 - Td or Tdap) 11/21/2029 11/22/2019, 10/14/2017 Meningococcal B Vaccine Aged Out No l onger eligible based on patient's age to complete this topic Meningococcal Vaccine Aged Out No kassy jaylen eligible based on patient's age to complete this topic Pneumococcal Vaccine: Pediatrics (0 to 5 Years) and At-Risk Patients (6 to 49 Years) Aged Out No longer eligible b ased on patient's age to complete this topic RSV Immunizations Under 20 Months Aged Out No longer eligible b ased on patient's age to complete this topic Insurance [place] MED[place] AETNA Care Teams Operations Administrative Assistant Relationship Specialty Start Date End Date None, Provider, PCP - General UNKNOWN PHYSICIAN SPECIALTY 06/23/22
--- OUTSIDE RECORDS SUMMARY | 2025-01-15 01:08 | XMS_ITS | Data Portability ---
Author Organization [facility] David Moeller Address [address] [place] [address] Care Team Providers Care Freight Forwarder Name Role Phone CITLALY ARMSTRONG Primary Care Provider Assessment No assessment recorded. Plan of Treatment Reminders Order Date Submit Date Provider Last Modified By Organization Details Last Modified Time Details Appointments None recorded . Lab rapid strep group A, throat 024 02/09/20 [email or web address] In-Office Order, Internal Use Only DO Not Attach Compendium DO Not Attach Compendium, Do Not Delete/merge, [id number] 11:11:25 rapid strep group A, throat 024 08/26/19 [email or web address] In-Office Order, Internal Use Only DO Not Attach Compendium DO Not Attach Compendium, Do Not Delete/merge, [id number] 12:53:33 Referral None recorded . Procedures None recorded . Surgeries None recorded . Imaging None recorded . Medication Orders None recorded . Patient TargetsNo targets recorded. Patient Instructions Encounter Date Encounter Id Patient Instructions Last Modified By Organization Details Last Modified Time 06/16/2021 [id number] A healthy lifestyle: care instructions [email or web address] Not available 06/16/2021 16:33:09 Reason for Referral None Reported. Results Created Date Observation Date Name Description Value Unit Range Abnormal Flag Note LastModifiedBy Organization Detail LastModifiedTime 08/26/19 24 08/26/2023 rapid strep group A, throa t Strep negati ve Not Available In-Office Order Internal Use Only DO Not Attach Compendium DO Not Attach Compendium, Do Not Delete/merge, [id number] 08/26/2023 12:53:26 02/09/20 02/09/2024 rapid strep group A, throa t Strep negati ve Not Available In-Office Order Internal Use Only DO Not Attach Compendium DO Not Attach Compendium, Do Not Delete/merge, [id number] 02/09/2024 10:27:55 01/07/20 24 01/07/2024 XR, ankle No observ ation record ed. [facility] [address], [place], [address], 01/10/2024 08:40:40 Result Notes None recorded. Problems No Known Problems Medical Equipment None Reported. Allergies No known drug allergies Medications Name Sig Start Date Stop Date Status Note LastModified by Organization Details LastModified Time norethindro ne (contracept araceli) 0.35 mg tablet 06/16 completed Not Available Not Available Not Available Slynd 4 mg (28) tablet TAKE 1 TABLET BY MOUTH EVERY DAY 06/16 completed Not Available Not Available Not Available ID NOW COVID-19 Test Kit TEST DIRECTED 06/16 completed Not Available Not Available Not Available Vitals Date Recorded Oxygen saturation Oxygen saturation in Arterial blood by Pulse oximetry Heart rate Respiratory rate Body temperature Body weight Body height Body mass index (BMI) Systolic And Diastolic Provider Name and Address Organization Details Last Updated DateTime 2 98 % 98 % 84 /min 16 /min 98 [degF] 939653. 63 g 173.36 cm 44.8 kg/m2 112/68 mm[Hg] Concepción myers MA [facility] 2 16:06:01 Date Recorded Body mass index (BMI) Body height Provider Name and Address Organization Details Last Updated DateTime 07/21/2023 46.1 kg/m2 173.36 cm ROCIO GAVIN Attn: Accounting,[address] [facility], [place], [address], [facility] 07/21/2023 09:42:48 Date Recorded Body weight Oxygen saturation Oxygen saturation in Arterial blood by Pulse oximetry Heart rate Respiratory rate Systolic And Diastolic Provider Name and Address Organization Details Last Updated DateTime 4 003348. 47 g 96 % 96 % 91 /min 16 /min 124/83 mm[Hg] Rosanna Guerra MA [place] - [facility] 4 09:41:46 Date Recorded Respiratory rate Provider Name a nd Address Organization Details Last Updated DateTime 08/26/2023 18 /min ROCIO GAVIN Attn: Accounting,[address] [facility], [place], [address], [place] - [facility] 08/26/2023 13:08:06 Date Recorded Body height Body mass index (BMI) Body weight Oxygen saturation Oxygen saturation in Arterial blood by Pulse oximetry Heart rate Systolic And Diastolic Provider Name and Address Organization Details Last Updated DateTime 173.36 cm 46.8 kg/m2 528948. 63 g 99 % 99 % 97 /min 120/81 mm[Hg] Tierney Espinal MA [place] - [facility] 12:49:56 Social History Question Answer Notes LastModified by Organizat ion Details LastModified Time Tobacco Smoking Status Never Smoker Viridiana Walton CMA null, [facility] 01/19/2017 10:55:48 What Type Of Diet Are You Following? REGULAR Information not available 06/16/2021 What Was The Date Of Your Most Recent Tobacco Screening? 07/21/2023 [email or web address] Information not available 07/21/2023 How Many Children Do You Have? 2 Information not available 06/16/2021 Do You Use Your Seat Belt Or Car Seat Routinely? Yes Information not available 06/16/2021 Do You Have Smoke And Carbon Monoxide Detectors In Your Home? Yes Information not available 06/16/2021 Are You Passively Exposed To Smoke? No Information not available 06/16/2021 Do You Use Sunscreen Routinely? Yes Information not available 06/16/2021 Has Tobacco Cessation Counseling Been Provided? Yes Information not available 07/21/2023 On What Date Was Tobacco Cessation Counseling Provided? 07/21/2023 [email or web address] Information not available 07/21/2023 Sex: Female Functional Status None recorded. Mental Status Question Answer Note LastModified by Organization D etails LastModified Time Do you feel stressed (tense, restless, nervous, or anxious, or unable to sleep at night)? [id number] lana Information not available 06/16/2021 Family History Relationship Description Onset Age of this Age Resolved Age Notes LastModified by Organization Details LastModified Time Sister Depressive disorder [email or web address] Not available 2016 10:53:52 Sister Anxiety thulsema Not available 01/19/2017 10:54:01 Sister Blood coagulation disorder thulsema Not available 2016 10:54:24 Mother Blood coagulation disorder thulsema Not available 2016 10:54:24 Medical History Condition Response Coronary Artery Disease N Other N Atrial Fibrillation N High Blood Pressure N Thyroid Problems N Kidney or Bladder Problems N Depression N COPD N Blood Clots N GI Problems N Skin Problems N Anemia N Heart Attack ([place]) N Diabetes N Anxiety Disorder N Muscle, Joint, or Bone Problems N Seizures/Epilepsy N Acid Reflux (GERD) N Cancer N Stroke N Allergies N Asthma N High Cholesterol N Hepatitis N Liver Disease N Headaches N Osteoporosis N Heart Failure N Gynecological History Statement/Question Response Flow Moderate Date of LMP Menses Monthly Y Duration of Flow (days) 6 Age at Menarche 12 Current Control Method None Age at First Child 27 LMP Definite Obstetrics History GPAL:G 2 P 0 0 0 2 Type Value Living 2 Total 2 Immunizations Vaccine Type Date Status Note Provider Nam e and Address Organization Details Recorded Time Tdap 8 completed Not Available [facility] 04/21/2019 02:42:37 Tdap 8 completed Not Available [facility] 04/21/2019 02:35:52 Influenza, split virus, quadrivalent, preservative 8 completed Not Available [facility] 04/21/2019 02:36:29 Tdap 0 completed SOHAM Velasco, [place] - [facility] 11/22/2019 09:51:01 Past Encounters Encounter ID Performer Location Encounter Start Date Encounter Closed Date Diagnosis/Indication Diagnosis SNOMED-CT Code Diagnosis ICD10 Code Diagnosis IMO Codes Diagnosis Note [id number] ETELVINA Montelongo NP [facility] [address] [place] [address] 01/19/2017 10:41:12 01/19/2017 16:12:22 Adult health examination 705483668 Z00.00 F/u annually or sooner if needed. [id number] ETELVINA Montelongo NP [facility] [address] [place] [address] 10/14/2017 09:55:53 10/19/2017 14:24:57 Adult health examination 831986236 Z00.00 F/u annually or sooner if needed. [id number] ETELVINA Montelongo NP [facility] [address] [place] [address] 01/25/2018 11:07:40 01/25/2018 13:36:02 Active or passive immunization 755185643 Z23 [id number] ROCIO BARTON [facility] [address] [place] [address] 11/22/2019 09:35:09 11/22/2019 20:45:28 Administration of tetanus vaccine 900356678 Z23 [id number] Rob vargas MD [facility] [address] [place] [address] 06/16/2021 15:53:33 06/17/2021 10:33:55 Depression screening 167862166 Z13.31 PHQ 0 Adult [facility] th examination 645320391 Z00.00 no concernsta flori Vit D OTCPEx- nl, morbidly obeseRTC PRN Morbid obesity 277465095 E66.01 BMI 44.8discus sed increasing exercise and healthier food options, high protein, low fat diet [id number] Rob vargas MD [facility] [address] [place] [address] 07/21/2023 09:12:11 07/21/2023 09:48:03 Strain of muscle of right foot 7761597418 9763463 S96.911A x3 wkstwisted R footc/o dull/achy pain to outside and bottom of R footno meds or OTC treatments for sxPEx- R foot and ankle joint normal w/o edema or TTP, FROMrec'd roll out bottom of foot with iced water bottle, shoe inserts for support, take NSAIDs PRNf/u in 2 wks if sx do not improve Depression screening 171 581627 Z13.31 PHQ 10post partum4 kids, stay at home Светлана zabala on her owndecline s meds or counseling at this time [id number] Rob vargas MD [facility] [address] [place] [address] 08/26/2023 12:37:29 08/26/2023 12:58:00 Viral pharyngitis 4595964 B34.9 sore throat and migraine x1 dayson tested positive for strep yesterdayn o symptoms todayPEx- mild erythema to oropharynx strep negativef/ u next wk if sx worsen [id number] David Castellano MD [facility] [address] [place] [address] 02/09/2024 10:21:41 02/09/2024 16:19:08 Sore throat 956782982 J02.9 Health Concerns Section Related Observation LastModified by Organization Detai ls LastModified Time None Recorded Concern Status LastModified by Organization Details LastModified Time None Recorded Advance Directives Directive None Recorded Payers Insurance Date Sequence Insurance Name Policy Number Policy Gallegos Covered Member ID Gallegos Member ID Guarantor Name 02/09/2024 1 [facility] (MEDICAID HMO) [id number] Akin Boyd [id number] Akni Boyd 07/20/2023 1 [facility] (MEDICAID HMO) Akin Boyd [id number] Akin Boyd Notes Date Note Type Note Provider Name and Address Organization Details Recorded Time 06/16/2021 text/html ROS as noted in the HPI Pt presents to establish care. No concerns or complaints today. Takes Vit D OTC. She was told she is vitamin deficient from OB.Denies fever, chills, chest pain, SOB, n/v/d, abd pain, dizziness, weakness, or headaches. ROCIO GAVIN Attn: [place], [address], [facility] 06/16/2021 16:36:05 07/21/2023 text/html ROS as noted in the HPI Pt presents with R foot pain x3 wks. States that she stepped weird/twisted her R foot. Pain is located on the outside and bottom of her foot. Describes as dull, achy. She has not taken any meds or OTC treatment for symptoms. ROCIO GAVIN Attn: Accounting,[address] [place], [address], [facility] 07/21/2023 14:52:13 08/26/2023 text/html ROS as noted in the HPI Pt presents for sore throat. Reports her 3 yr old tested positive for strep yesterday. Pt developed sore throat and migraine last night. No symptoms today. Denies fevers, chills, cough, congestion, rhinorrhea, ear pain, or sinus pressure. ROCIO GAVIN Attn: Accounting,[address] [facility], [place], [address], [facility] 08/26/2023 13:09:22 OBGyn Episode No OBEpisode recorded.
[2025-01-15 06:00] VITALS: BP 132/78; PULSE 95; TEMP 36.1; O2SAT 100; BMI 44.9
[2025-01-15] MEDS: LACTATED RINGERS 1,000 ML 30 ML IV CONT (06:30)
[2025-01-15] MEDS: ACETAMINOPHEN 500 MG TABLET 1000 MG PO (06:55)
--- NOTE | 2025-01-15 07:02 | P.PNAN_ITS ---
Anes - Initial Pre Proc Eval Procedure: Operation Date: 01/15/25 07:30 Proposed Procedures p Suction Dilation and Curettage - Ender Boyd MD Date/Time: 01/15/25 07:02 Surgeon: Ender Boyd MD Pre Op Diagnosis: miscarriage Patient Data Age: 34 Gender: F Height: 1.73 m Weight: 133.6 kg Allergies Allergy/AdvReac Type Severity Reaction Status Date / Time No Known Allergies Allergy Verified 01/15/25 06:03 Home Medications ?Medication ?Instructions ?Recorded ?Confirmed ?Type No Home Medications 01/11/25 01/11/25 H istory Patient hx anesthesia problems: none Family hx anesthesia problems: none Results Review: All pre-operative results and documents have been reviewed as part of the pre- operative evaluation. [facility] Past Medical History Medical History Hyperlipidemia Morbid obesity with BMI of 40.0-44.9, adult Family History Family History Mother Hypertension Social History Social History Smoking status: Never smoker Second hand tobacco smoke exposure: No Alcohol intake: never Substance use: never Substance use type: does not use Lack of Transportation: No Lack of Food: Never True Current Housing: I Have Housing Concerned About Future Housing: No Difficulty Paying Gas/Electric Bills: No Difficulty Paying for Meds: No Currently Unemployed: No Education: High School Diploma/GED Difficulty w/ Childcare or Family Care: No Living arrangements: with family Gender identity (if verbalized by the patient): Female Spiritual care concerns: No Anes - Eval Final PreProcedure Day of Procedure 01/15/25 07:02 Patient weight: morbidly obese Heart: regular rate and rhythm Lungs: clear to auscultation Airway: Mallampati scale class II Neurological: alert and oriented Last oral intake: >/= 8 hours ASA classification: III Emergent: no Anesthetic plan: proceed Anesthesia type and monitoring: general GIVS and standard monitoring Results Review: All pre-operative results and documents have been reviewed as part of the pre- operative evaluation. Informed Consent: The patient's anesthetic plan and its attendant risks and benefits were discussed with the patient/family/POA. Questions were solicited and answers provided to the satisfaction of the patient/family/POA.
--- NOTE | 2025-01-15 07:19 | P.HP_ITS ---
H&P: HPI History of Present Illness Date/Time: 01/15/25 07:19 Chief Complaint: missed miscarriage Narrative: Patient is a 34 year old female who presents for suction D&C indicated for missed miscarriage. She was seen in the office for her 12 week appointment and was found to have a missed miscarriage measuring 11w5d with no heart tones. She denies bleeding, has had minor cramping. No fevers or chills. She would like the products of conception sent for genetic testing. Review of Systems Review of Systems: All systems reviewed & are unremarkable except as noted in HPI and below PMFSH Past Medical History Medical History Hyperlipidemia Morbid obesity with BMI of 40.0-44.9, adult Family History Family History Mother Hypertension Social History Social History Smoking status: Never smoker Second hand tobacco smoke exposure: No Alcohol intake: never Substance use: never Substance use type: does not use Lack of Transportation: No Lack of Food: Never True Current Housing: I Have Housing Concerned About Future Housing: No Difficulty Paying Gas/Electric Bills: No Difficulty Paying for Meds: No Currently Unemployed: No Education: High School Diploma/GED Difficulty w/ Childcare or Family Care: No Living arrangements: with family Gender identity (if verbalized by the patient): Female Spiritual care concerns: No Meds Home Medications and Allergies Home Medications ?Medication ?Instructions ?Recorded ?Confirmed ?Type No Home Medications 01/11/25 01/11/25 H istory Allergies Allergy/AdvReac Type Severity Reaction Status Date / Time No Known Allergies Allergy Verified 01/15/25 07:10 Exam Const: General: comfortable and no acute distress Eyes: General: appearance normal, both eyes and all related structures Resp: Effort & Inspection: normal respiratory effort Cardio: Rate: regular rate Extrem: General: normal to inspection Psych: Mental Status: mental status grossly normal Assessment and Plan Assessment and plan (1) Missed : Code(s): O02.1 - Missed Status: Acute Assessment and Plan: - diagnosed at 12 week US, CRL measuring 11w5d with no cardiac activity - no bleeding, mild cramping - no fevers or chills - desires genetic testing on POC - risks and benefits discussed with patient who desires to proceed with suction D&C
--- NOTE | 2025-01-15 07:22 | WPDHPUPDATE1 ---
History and Physical Update Update Date/Time: 01/15/25 07:22 History and Physical has been reviewed, including an updated exam of the patient. There are NO changes in the patient's condition. Risks, benefits, and alternatives have been discussed and questions answered. Patient agrees to proceed with procedure.
--- NOTE | 2025-01-15 07:49 | S_PTH ---
PATIENT: Akin Boyd LOC: [facility] U#:[id number] AGE/SX: 34/F ROOM: RE01/15/[address]: Ender Boyd MD : 1990 BED: DIS: 01/15/2025 SPEC #: [id number] RECD: 01/15/25 08:21 STATUS: KIMBERLEE REQ #: [id number] ERASMO: 01/15/25 07:[address]: Ender Boyd DEPT: [facility] Surgical RECD BY: Deep Nelson ENTERED: 01/15/25 08:22 SP TYPE: Surgical OTHR DR: Emma Boone, PA Tissues: A - Uterine Contents Procedures: Hematoxylin and Eosin Stain Gross and Microscopic Level 4 Cytogenetics
[2025-01-15] MEDS: LIDO 1%/EPINEPHRINE 1:100,000 20 ML VIAL 10 ML INFILTRATE (07:53)
[2025-01-15] MEDS: METHYLERGONOVINE MALEATE 0.2 MG/ML VIAL IV PUSH (08:03)
[2025-01-15 08:16] VITALS: BP 117/68; PULSE 92; RESP 14; O2SAT 96
--- NOTE | 2025-01-15 08:17 | W.PM.PROC2 ---
Procedure Note - Detailed Date of Procedure 01/15/25 Pre-op Diagnosis miscarriage Post-op Diagnosis Same Procedure Performed suction D&C Surgeon Ender Boyd MD Anesthesia MAC Indications missed miscarriage at 11w5d Description of Procedure The patient was then taken to the operating room with IVFs running. She was placed in the dorsal supine position where she received general anesthesia without any difficulty.?? The patient was placed in the dorsal lithotomy position using zane stirrups. She was then prepped and draped in a normal sterile fashion. A time-out procedure was performed and all members of the OR team agreed on the patient and plan. A bivalved speculum was then inserted into the patient's vagina.? The anterior lip of the cervix was grasped with a single tooth tenaculum. The cervical os was dilated using erica dilators to accommodate a 12mm curette.? The suction curette was tested outside the patient and found to be working properly.? The curette was then advanced into the intrauterine cavity and circumferentially removed.? All products of conception were removed until little tissue was seen passing through the tubing.? A sharp curettage was then performed until a gritty texture was noted.?Ultrasound was used to ensure removal of all products of conception. After the uterus was noted to be empty on US, a moderate amount of uterine bleeding was still noted. IM methergine and bimanual massage was used to obtain hemostasis. The specimen was sent to pathology.? The single tooth tenaculum was removed from the anterior lip of the cervix and the cervix was hemostatic.? The bivalve speculum was removed.? The patient tolerated the procedure well.? Sponge, lap, needle, and instrument counts were correct X3.? The patient was awakened from anesthesia and taken to the recovery room in stable condition. Estimated Blood Loss 500 Pathology Yes Condition Stable Disposition Same day
--- NOTE | 2025-01-15 08:22 | SUR.OPER ---
Specimen sent with JARED Cast and received in pathology by Deep.
[2025-01-15 08:45] VITALS: BP 126/72; PULSE 75
[2025-01-15] MEDS: ONDANSETRON INJ 4 MG/2 ML VIAL IV PUSH (08:53)
[2025-01-15 09:15] VITALS: BP 127/73; PULSE 69
[2025-01-15 09:45] VITALS: BP 124/73; PULSE 68
[2025-01-15] MEDS: FAMOTIDINE 20 MG/2 ML VIAL IV PUSH (09:56)
[2025-01-15] MEDS: SCOPOLAMINE 1 MG PATCH 1 PATCH TRANSDERM (09:58)
[2025-01-15 10:15] VITALS: BP 121/78; PULSE 63
== END 2025-01-15 10:32 | disposition home or self-care (01) ==
PROVIDERS: PCP Physician Assistant; Visit Provider Obstetrics & Gynecology
PROC: (CPT 59820; principal; 2025-01-15 07:30)
DX: O02.1 Missed abortion (principal); E78.5 Hyperlipidemia, unspecified
CPT/HCPCS: 59820; 36415; 85461; 86850; 86900; 86901; 88305; A9270; J2004; J2210; J2250; J2270; J2405; J2704; J7120